=== PATIENT | male | born 1950 | race Caucasian/White ===

== ENCOUNTER 2018-07-15 23:33 | Inpatient (IN) | payer MEDICARE, OTHER ==
[2018-07-15 23:34] VITALS: BMI 24.4
[2018-07-15] MEDS ORDERED: Sodium Chloride 0.9% 1,000 ML IV ONE (23:51)
--- NOTE | 2018-07-15 23:51 | C.PDOC ---
History Of Present Illness patient presents with abdominal pain since yesterday. Has history of recent bowel resection. No f/c/n/v. Dull aching, pressure, diffuse.5/10 pain Time Seen by Provider: 07/15/18 23:50 Chief Complaint (Nursing): Abdominal Pain History Per: Patient History/Exam Limitations: no limitations Onset/Duration Of Symptoms: Days Current Symptoms Are (Timing): Worse Context: Other Severity: Moderate Pain Scale Rating Of: 5 Location Of Pain/Discomfort: Diffuse Radiation Of Pain To:: None Quality Of Discomfort: Dull, Cramping, Pressure Associated Symptoms: denies: Fever, Chills, Nausea Exacerbating Factors: None Alleviating Factors: None Last Bowel Movement: Yesterday Recent travel outside of the [place]: No Additional History Per: Patient, Family Past Medical History Reviewed: Historical Data, Nursing Documentation, Vital Signs Vital Signs: Last Vital Signs Temp 98.2 F 07/15/18 23:41 Pulse 86 07/15/18 23:41 Resp 20 07/15/18 23:41 BP 112/69 07/15/18 23:41 Pulse Ox 96 07/15/18 23:41 - Medical History PMH: HTN, Hypercholesterolemia Denies: Chronic Kidney Disease Surgical History: Coronary Stent (X3), Endoscopy - [facility] Procedures EXCISION OF ILEUM, PERCUTANEOUS ENDOSCOPIC APPROACH (02/19/18) EXCISION OF JEJUNUM, PERCUTANEOUS ENDOSCOPIC APPROACH (02/19/18) Family History: States: No Known Family Hx - Social History Hx Alcohol Use: No Hx Substance Use: No - Immunization History Hx Tetanus Toxoid Vaccination: No Hx Influenza Vaccination: Yes Hx Pneumococcal Vaccination: No Review Of Systems Constitutional: Negative for: Fever, Chills ENT: Negative for: Throat Pain Cardiovascular: Negative for: Chest Pain Respiratory: Negative for: Shortness of Breath Gastrointestinal: Positive for: Abdominal Pain. Negative for: Nausea Genitourinary: Negative for: Dysuria Musculoskeletal: Negative for: Back Pain Skin: Negative for: Rash Neurological: Negative for: Weakness Psych: Negative for: Anxiety Physical Exam - Physical Exam Appears: Non-toxic, Other (moderate discomfort) Skin: Warm, Dry Head: Normacephalic Eye(s): bilateral: Normal Inspection Oral Mucosa: Moist Neck: Supple Chest: Symmetrical Cardiovascular: Rhythm Regular Respiratory: No Rales, No Rhonchi, No Wheezing Gastrointestinal/Abdominal: Bowel Sounds (more tympanic on right side), Soft, Tenderness, Distention, No Guarding, No Rebound Back: Normal Inspection Extremity: Normal ROM Extremity: Bilateral: Atraumatic, Normal Color And Temperature, Normal ROM Pulses: Left Dorsalis Pedis: Normal, Right Dorsalis Pedis: Normal Neurological/Psych: Oriented x3 Gait: Steady ED Course And Treatment - Laboratory Results Result Diagrams: 07/16/18 00:16 07/16/18 00:16 ECG: Interpreted By Me, Viewed By Me O2 Sat by Pulse Oximetry: 96 Pulse Ox Interpretation: Normal - Radiology CXR: Interpreted by Me, Viewed By Me CXR Interpretation: No: Infiltrates, Fracture, Pnemothorax - Other Rad abd X-Ray: Interpreted by Me, Viewed By Me Interpretation: sbo, no free air, - CT Scan/US CT A/P Other Rad Studies (CT/US): Read By Radiologist, Radiology Report Reviewed CT/US Interpretation: CT SCAN OF THE ABDOMEN AND PELVIS WITH CONTRAST. CLINICAL HISTORY: Abdominal pain. TECHNIQUE: Multiple axial and coronal CT images were obtained through the abdomen and pelvis after administration of intravenous contrast material. COMMENTS: Small sliding hiatal hernia. Fluid-filled distended stomach. Moderate partial small bowel obstruction. Transition zone at the level of the surgical anastomosis in the right lower quadrant. No evidence of bowel perforation or pneumatosis intestinalis. The liver is of uniform attenuation without mass or defect. There is no intra or extrahepatic biliary ductal dilatation. The spleen is normal. The gallbladder is within normal limits. The pancreas is of normal contour and attenuation characteristics. There is no evidence of adrenal mass. Both kidneys demonstrate prompt and equal nephrograms. The kidneys are normal in size, shape and configuration. There is no evidence of renal or ureteral mass. No renal or ureteral calculi are identified. There is no hydroureter or hydronephrosis. No evidence for appendicitis. There is no bowel wall thickening. There is no evidence of abdominal ascites or lymphadenopathy. There is no evidence of intrinsic or extrinsic bladder mass. There is no pelvic ascites or lymphadenopathy. Images of the lung bases show no evidence of pleural or parenchymal mass. There are no pleural effusions. The bony structures are free of lytic or blastic lesions. Fat containing left inguinal hernia without incarceration. IMPRESSION: Small sliding hiatal hernia. Fluid-filled distended stomach. Moderate partial small bowel obstruction. Transition zone at the level of the surgical anastomosis in the right lower quadrant. No evidence of bowel perforation or pneumatosis intestinalis. Progress Note: spoke with the surgical garment assembly supervisor, will come and see the pt in the ed Disposition Discussed With Dr.: Kelby Romero Comment: accepted the pt on his service and took over the care at 2:30 AM Doctor Will See Patient In The: ED Counseled Patient/Family Regarding: Studies Performed, Diagnosis - Disposition Disposition: HOSPITALIZED Disposition Time: 23:51 Condition: FAIR Forms: [employer] (Nepali) - POA Present On Arrival: Poor Glycemic Control - Clinical Impression Clinical Impression: Abdominal pain, Vomiting, SBO (small bowel obstruction) Decision To Admit - Pt Status Changed To: Hospital Disposition Of: Inpatient - Admit Certification Admit to Inpatient:: After my assessment, the patient will require hospit alization for at least two midnights. This is because of the severity of symptoms shown, intensity of services needed, and/or the medical risk in this patient being treated as an outpatient. - InPatient: Physician Admission Certification:: After my assessment, the patient will require hospitalization for at least two midnights. This is because of the severity of symptoms shown, intensity of services needed, and/or the medical risk in this patient being treated as an outpatient. - . Bed Request Type: Regular Admitting Physician: Kelby Romero Patient Diagnosis: Abdominal pain, Vomiting, SBO (small bowel obstruction)
[2018-07-16 00:26] LABS: BASO % 0.4 % (0.0-2.0); EOS % 0.2 % (0.0-4.0); HEMOGLOBIN 13.1 g/dL (12.0-18.0); LYMPH # 0.9 K/uL (1.0-4.3); LYMPH % 12.2 % (20.0-40.0); MEAN CELL VOLUME 88.9 fL (80.0-94.0); MEAN CORPUSCULAR HEMOGLOBIN 29.4 pg (27.0-31.0); MEAN CORPUSCULAR HGB CONC 33.1 g/dL (33.0-37.0); MEAN PLATELET VOLUME 8.8 fL (7.2-11.7); MONO # 0.5 K/uL (0.0-0.8); MONO % 7.3 % (0.0-10.0); NEUT % 79.9 % (50.0-75.0); RBC 4.47 Mil/uL (4.40-5.90); RED CELL DISTRIBUTION WIDTH 14.8 % (11.5-14.5); WHITE BLOOD COUNT 7.5 K/uL (4.8-10.8)
[2018-07-16 00:39] LABS: INR 1.1; PROTHROMBIN TIME 11.9 SECONDS (9.7-12.2)
[2018-07-16 00:43] LABS: ALB/GLOB RATIO 1.5 (1.0-2.1); ALBUMIN 4.9 g/dL (3.5-5.0); ALT/SGPT 14 U/L (21-72); AST/SGOT 33 U/L (17-59); BLOOD UREA NITROGEN 18 mg/dL (9-20); CALCIUM 10.6 mg/dl (8.6-10.4); GFR NON-AFRICAN AMERICAN 50; LIPASE 103 U/L (23-300)
[2018-07-16] MEDS ORDERED: Iodixanol 320 MG/ML 100 ML BOTTLE IV ONE (01:12)
--- NOTE | 2018-07-16 03:09 | CP.PCM.HP ---
<Shi Reese - Last Filed: 07/16/18 03:12> History of Present Illness - History of Present Illness History of Present Illness: GENERAL SURGERY HISTORY AND PHYSICAL FOR DR. ROMERO 67 yo M with PMHx of HTN, hyperlipidemia, BPH, CAD, [place] s/p laparoscopic small bowel resection on 02/19/18 who presents to the ED with abdominal pain for a day and a half. The pain began on 07/14 after lunch. Pt's last BM was on 07/14. He vomited once that day. Took a percocet but did not relieve his pain. Yesterday, he vomited 4-5x with worsening pain. He called Dr. Romero and was told to come into the ED. Of note, on 02/19/18, he had a laparoscopic small bowel resection of ileum and jejunum for strictures with a meckels's diverticulectomy. PMHx: HTN, hyperlipidemia, BPH, CAD, [place] Surgeries: bilateral knee replacement, bilateral cataract, cardiac stent on plavix, laparoscopic small bowel resection on 02/19/18 Allergies: none Social history: denies etoh or tobacco abuse Present on Admission - Present on Admission Any Indicators Present on Admission: No Review of Systems - Review of Systems All systems: reviewed and no additional remarkable complaints except (as per HPI) Past Patient History - Past Medical History & Family History Past Medical History?: Yes - Past Social History Smoking Status: Never Smoked Alcohol: None - CARDIAC Hx Hypercholesterolemia: Yes Hx Hypertension: Yes - PULMONARY Hx Respiratory Disorders: No - NEUROLOGICAL Hx Neurological Disorder: No - HEENT Hx HEENT Problems: Yes Hx Cataracts: Yes (BILAT.) - RENAL Hx Chronic Kidney Disease: No - ENDOCRINE/METABOLIC Hx Endocrine Disorders: No - HEMATOLOGICAL/ONCOLOGICAL Hx Blood Disorders: No - INTEGUMENTARY Hx Dermatological Problems: No - MUSCULOSKELETAL/RHEUMATOLOGICAL Hx Musculoskeletal Disorders: Yes Hx Degenerative Joint Disease: Yes - GASTROINTESTINAL Hx Gastrointestinal Disorders: Yes Other/Comment: HX: SMALL BOWEL LESION - GENITOURINARY/GYNECOLOGICAL Hx Genitourinary Disorders: No - PSYCHIATRIC Hx Substance Use: No - SURGICAL HISTORY Hx Coronary Stent: Yes (X3) - ANESTHESIA Hx Anesthesia: Yes Hx Anesthesia Reactions: No Hx Malignant Hyperthermia: No Meds Allergies/Adverse Reactions: Allergies Allergy/AdvReac Type Severity Reaction Status Date / Time No Known Allergies Allergy Verified 07/15/18 23:48 Physical Exam - Constitutional Appears: Well, Non-toxic, No Acute Distress - Head Exam Head Exam: ATRAUMATIC, NORMAL INSPECTION - Eye Exam Eye Exam: EOMI, Normal appearance - Respiratory Exam Respiratory Exam: NORMAL BREATHING PATTERN. absent: Respiratory Distress - Cardiovascular Exam Cardiovascular Exam: +S1, +S2 - GI/Abdominal Exam GI & Abdominal Exam: Soft, Tenderness (mild lower abdominal tenderness bilaterally). absent: Distended, Firm, Guarding, Rebound, Rigid Additional comments: well healed lower midline scar - Extremities Exam Extremities exam: Positive for: normal inspection. Negative for: calf tenderness - Neurological Exam Neurological exam: Alert, CN II-XII Intact, Oriented x3 - Psychiatric Exam Psychiatric exam: Normal Affect, Normal Mood - Skin Skin Exam: Dry, Normal Color, Warm Results - Vital Signs Recent Vital Signs: Last Vital Signs Temp 98.2 F 07/15/18 23:41 Pulse 86 07/15/18 23:41 Resp 20 07/15/18 23:41 BP 112/69 07/15/18 23:41 Pulse Ox 96 07/16/18 02:34 - Labs Result Diagrams: 07/16/18 00:16 07/16/18 00:16 Labs: Laboratory Results - last 24 hr 07/16/18 07/16/18 07/16/18 00:16 00:16 00:16 WBC 7.5 RBC 4.47 Hgb 13.1 Hct 39.7 MCV 88.9 MCH 29.4 MCHC 33.1 RDW 14.8 H Plt Count 188 MPV 8.8 Neut % (Auto) 79.9 H Lymph % (Auto) 12.2 L [place] % (Auto) 7.3 Eos % (Auto) 0.2 Baso % (Auto) 0.4 Neut # (Auto) 6.0 Lymph # (Auto) 0.9 L [place] # (Auto) 0.5 Eos # (Auto) 0.0 Baso # (Auto) 0.0 PT 11.9 INR 1.1 Sodium 136 Potassium 4.9 Chloride 96 L Carbon Dioxide 29 Anion Gap 16 BUN 18 Creatinine 1.4 Est GFR ( Amer) > 60 Est GFR (Non-Af Amer) 50 Random Glucose 120 H Calcium 10.6 H Total Bilirubin 0.8 AST 33 ALT 14 L D Alkaline Phosphatase 68 Total Protein 8.2 Albumin 4.9 Globulin 3.2 Albumin/Globulin Ratio 1.5 Lipase 103 Blood Type Antibody Screen 07/16/18 00:27 WBC RBC Hgb Hct MCV MCH MCHC RDW Plt Count MPV Neut % (Auto) Lymph % (Auto) [place] % (Auto) Eos % (Auto) Baso % (Auto) Neut # (Auto) Lymph # (Auto) [place] # (Auto) Eos # (Auto) Baso # (Auto) PT INR Sodium Potassium Chloride Carbon Dioxide Anion Gap BUN Creatinine Est GFR ( Amer) Est GFR (Non-Af Amer) Random Glucose Calcium Total Bilirubin AST ALT Alkaline Phosphatase Total Protein Albumin Globulin Albumin/Globulin Ratio Lipase Blood Type AB POSITIVE Antibody Screen Negative Assessment & Plan - Assessment and Plan (Free Text) Assessment: 67 yo M with PMHx of HTN, hyperlipidemia, BPH, CAD, [place] s/p laparoscopic small bowel resection on 02/19/18 who is found to have SBO - CT Abd/Pelvis: Small sliding hiatal hernia. Fluid-filled distended stomach. Moderate partial small bowel obstruction. Transition zone at the level of the surgical anastomosis in the right lower quadrant. Fat containing left inguinal hernia without incarceration. - NPO, bowel rest - IV fluids - Hold Plavix and PO meds - Start Zosyn - NG tube inserted with 250cc dark brown output - Continue NG tube to low continuous suction - Serial abdominal exams - Consult to Dr. Eve Babin - Discussed plan with Dr. Heather Reese PGY-4 <Kelby Romero - Last Filed: 07/20/18 20:47> Results - Vital Signs Recent Vital Signs: Last Vital Signs Temp 97.8 F 07/18/18 08:00 Pulse 74 07/18/18 08:00 Resp 20 07/18/18 08:00 BP 133/71 07/18/18 08:00 Pulse Ox 97 07/18/18 08:00 - Labs Result Diagrams: 07/16/18 00:16 07/18/18 08:23 Attending/Attestation - Attestation I have personally seen and examined this patient.: Yes I have fully participated in the care of the patient.: Yes I have reviewed all pertinent clinical information: Yes Notes (Text): Pt was seen and examined at bedside Agree with above note and assessment Pt with abdominal pain and nausea and vomiting Abdomen : Soft, ,NT,distended Labs and radiology reviewed Ass: PSBO, IBD Plan: NG tube insertion NPO, IVF GI consult Medicine consult C/w current mx Plan d.w pt in detail Risk and benefit explained in detail.
[2018-07-16] MEDS ORDERED: Piperacill/Tazo 3.375gm in Dex 3.375 GM/50 ML BAG IVPB SCH (03:15)
[2018-07-16] MEDS ORDERED: Lactated Ringer's 1,000 ML IV SCH (03:30)
[2018-07-16] MEDS: Piperacill/Tazo 3.375gm in Dex 3.375 GM/50 ML BAG IVPB SCH ×4 (04:33→21:47)
--- NOTE | 2018-07-16 09:36 | RAD ---
Date of service: 07/16/2018 PROCEDURE: Radiographs of the chest and abdomen (obstructive series) HISTORY: abd pain COMPARISON: No prior. TECHNIQUE: AP radiograph of the chest, with upright and supine radiographs of the abdomen. FINDINGS: CHEST: Lungs: Clear. Cardiovascular: Normal size heart. No pulmonary vascular congestion. No aortic atherosclerotic calcification present Pleura: No pleural fluid. No pneumothorax. Other findings: None. ABDOMEN AND PELVIS: Air-fluid levels are identified within what appear to be small and possibly large-bowel loops in the central abdomen/left lower quadrant. Retained fecal material is moderate the right hemicolon and limited at the rectosigmoid junction. Pattern is nonspecific but could reflect an early small-bowel obstruction. Follow-up radiography or CT advised for added characterization. Air-fluid levels seen the stomach. No free intra peritoneal gas collection identified or abnormal intra-abdominal calcifications. Postop changes seen in the right hemipelvis soft tissues. Advanced degenerative joint disease seen the bilateral hip joints, moderate the bilateral sacroiliac joints. Dextroscoliotic lumbar spinal deformity identified. IMPRESSION: Findings suspicious but not definitive for potential intermittent or partial small bowel obstruction. Postop changes seen in the right hemipelvis soft tissues inferiorly. No free intra peritoneal gas collection. Follow-up radiography or CT advised.
[2018-07-16] MEDS ORDERED: Dextrose 5%/0.9% NS 1,000 ML IV SCH (10:00)
--- NOTE | 2018-07-16 10:11 | CT ---
Date of service: 07/16/2018 PROCEDURE: CT Abdomen and Pelvis with contrast HISTORY: sbo COMPARISON: Abdomen obstructive series radiographs 07/16/2018. TECHNIQUE: Following the intravenous administration of iodinated contrast material, a CT examination of the abdomen and pelvis was performed from the domes of the diaphragms to the symphysis pubis with reformatted datasets provided in axial, sagittal and coronal planes. Oral contrast was not administered as per referring physician request. Contrast dose: Visipaque 320, 100 cc Radiation dose: Total exam DLP = 423.36 mGy-cm. This CT exam was performed using one or more of the following dose reduction techniques: Automated exposure control, adjustment of the mA and/or kV according to patient size, and/or use of iterative reconstruction technique. FINDINGS: LOWER THORAX: Small hiatal hernia identified. LIVER: Hepatic steatosis is manifest by diminished attenuation throughout the liver without discrete mass or intrahepatic biliary dilatation evident. GALLBLADDER AND BILE DUCTS: Unremarkable. PANCREAS: Unremarkable. No gross lesion or ductal dilatation. SPLEEN: Unremarkable. ADRENALS: Unremarkable. No mass. KIDNEYS AND URETERS: Unremarkable. No hydronephrosis. No solid mass. VASCULATURE: Nonaneurysmal abdominal aortic calcific atherosclerotic changes are identified. BOWEL: Stomach is distended with retained fluid with no mural thickening or nodularity associated throughout the vast majority of the fundus or cardiac segment. The antrum is collapsed partially and poorly evaluated. Is also no oral contrast limiting evaluation of the gastrointestinal tract. There is prominent dilatation of proximal and mid small bowel with chain sutures identified at proximal and distal small bowel segments. At the right lower quadrant abdomen, there is a collapsed or strictured segment of distal small bowel at the right lower quadrant/right hemipelvis with associated suture material and fecalization of slightly more proximal small bowel. Limited retained fecal material seen in the colon which is largely collapsed. The pattern is most compatible with distal small-bowel obstruction and further clinical correlation is advised. APPENDIX: Normal, retrocecal appendix. PERITONEUM: Unremarkable. No free fluid. No free air. LYMPH NODES: Unremarkable. No enlarged lymph nodes. BLADDER: Unremarkable. REPRODUCTIVE: Mild prostate gland enlargement. BONES: Severe anterior wedge compression of T11 with scoliotic thoracolumbar spinal deformity evident. Minimal grade 1 spondylolisthesis L2-3 on the basis of facet arthropathy. No spondylolysis. OTHER FINDINGS: None. IMPRESSION: Distal small-bowel obstruction with small bowel transition from dilated to collapsed loops at the right lower quadrant/right hemipelvis for postoperative change sutures are identified. Fecalization of the lumen of the small bowel seen proximal to this collapsed segment. Please see discussion above. Other lesser findings as discussed above. Concordant preliminary report from Jose F, 07/16/2018, 2:25 a.m..
--- NOTE | 2018-07-16 10:16 | RAD ---
Date of service: 07/16/2018 HISTORY: chest pain COMPARISON: 02/11/2018 FINDINGS: The nasogastric tube is coiled in the stomach. LUNGS: The lungs are well inflated. There is bibasilar PLEURA: No pleural effusions or pneumothorax. CARDIOVASCULAR: The heart is normal in size. No aortic atherosclerotic calcifications present. OSSEOUS STRUCTURES: Within normal limits for the patient's age. VISUALIZED UPPER ABDOMEN: Normal. OTHER FINDINGS: None. IMPRESSION: Nasogastric tube is coiled in the stomach. Bibasilar atelectasis.
[2018-07-16] MEDS: Potassium Chloride 40 MEQ in Dextrose 5%/0.9% NS 1,000 ML IV SCH (13:54)
--- NOTE | 2018-07-16 14:44 | CP.PCM.CON ---
<Tito Kapoor - Last Filed: 07/16/18 15:31> History of Present Illness - History of Present Illness History of Present Illness: PGY-4 GI Fellow Consult Note Pt is a 67 yo [place]olan Male with HTN, HLD, CAD (stent 2017), BPH and history of recurrent SBO (s/p SB resection on 02/19/18 after capsule endoscopy was stuck) presenting with abdominal pain and N/V. He states that on 07/14/18 shortly after lunch he had periumbilical discomfort associated with multiple episodes of bilious emesis. States he tried to vomiting more to the see if it would help with pain as well as took some percocet without relief of symptoms. States that last BM was in the AM of 07/14 which he states was formed brown BM. He denied any weight loss, dysphagia, melena, hematochezia, joint pain, rashes, eye pain/mcmullen e in vision nor oral ulcers. Of note, pt recently had repeat video capsule endoscopy in Feb 2018 after recent EGD+CSPY+VCE were negative at [facility](?). That capsule became stuck; therefore, he underwent laparoscopic surgery for capsule retrieval with small bowel resection of ileum and jejunum for strictures with a meckels's diverticulectomy. Path of resected bowel showed focal muscularis propria hyperplasia. 12 point ROS negative other than stated above MHx: See above SurgHx: Laparoscopic small bowel resection of ileum and jejunum for strictures with a meckels's diverticulectomy (02/19/18), bilateral knee replacement, bilateral cataract, cardiac stent on clopidogrel Meds: Reviewed in chart FamHx: States grandson has Crohn's disease (on adalimumab), otherwise denied anyone with GI problems/CRC SocHx: Denied x3 All: NKDA Past Patient History - Past Medical History & Family History Past Medical History?: Yes - Past Social History Smoking Status: Never Smoked - CARDIAC Hx Hypercholesterolemia: Yes Hx Hypertension: Yes - PULMONARY Hx Respiratory Disorders: No - NEUROLOGICAL Hx Neurological Disorder: No - HEENT Hx HEENT Problems: Yes Hx Cataracts: Yes (BILAT.) - RENAL Hx Chronic Kidney Disease: No - ENDOCRINE/METABOLIC Hx Endocrine Disorders: No - HEMATOLOGICAL/ONCOLOGICAL Hx Blood Disorders: No - INTEGUMENTARY Hx Dermatological Problems: No - MUSCULOSKELETAL/RHEUMATOLOGICAL Hx Musculoskeletal Disorders: Yes Hx Degenerative Joint Disease: Yes Hx Falls: No - GASTROINTESTINAL Hx Gastrointestinal Disorders: Yes Other/Comment: HX: SMALL BOWEL LESION - GENITOURINARY/GYNECOLOGICAL Hx Genitourinary Disorders: No - PSYCHIATRIC Hx Psychophysiologic Disorder: No Hx Substance Use: No - SURGICAL HISTORY Hx Coronary Stent: Yes (X3) - ANESTHESIA Hx Anesthesia: Yes Hx Anesthesia Reactions: No Hx Malignant Hyperthermia: No Meds Allergies/Adverse Reactions: Allergies Allergy/AdvReac Type Severity Reaction Status Date / Time No Known Allergies Allergy Verified 07/15/18 23:48 - Medications Medications: Current Medications Piperacillin Sod/Tazobactam Sod (Zosyn 3.375 Gm Iv Premix) 3.375 gm in 50 mls @ 100 mls/hr IVPB Q6H [facility] Last Admin: 07/16/18 11:31 Dose: 100 mls/hr Potassium Chloride 40 meq/ (Dextrose/Sodium Chloride) 1,020 mls @ 100 mls/hr IV .[id number] [facility] Last Admin: 07/16/18 13:54 Dose: 100 mls/hr Morphine Sulfate (Morphine) 2 mg IVP Q4 PRN PRN Reason: Pain, moderate (4-7) Last Admin: 07/16/18 04:15 Dose: 2 mg Morphine Sulfate (Morphine) 4 mg IVP Q4 PRN PRN Reason: Pain, severe (8-10) Ondansetron HCl (Zofran Inj) 4 mg IVP Q4 PRN PRN Reason: Nausea/Vomiting Pantoprazole Sodium (Protonix Inj) 40 mg IVP DAILY [facility] Last Admin: 07/16/18 10:27 Dose: 40 mg Sodium Phosphate (Fleet Enema) 135 ml MN Q8H [facility] Stop: 07/18/18 02:01 Last Admin: 07/16/18 10:34 Dose: 135 ml Physical Exam - Constitutional Appears: Well, No Acute Distress - Head Exam Head Exam: ATRAUMATIC, NORMAL INSPECTION - Eye Exam Eye Exam: EOMI. absent: Scleral icterus - ENT Exam ENT Exam: Mucous Membranes Dry. absent: Mucous Membranes Moist Additional comments: NG tube in place, clamped - Respiratory Exam Respiratory Exam: Clear to Auscultation Bilateral, NORMAL BREATHING PATTERN. absent: Accessory Muscle Use - Cardiovascular Exam Cardiovascular Exam: REGULAR RHYTHM, RRR - GI/Abdominal Exam GI & Abdominal Exam: Distended (mildly), Normal Bowel Sounds, Soft, Tenderness (ttp jsut superios to umbilicus). absent: Bruit, Diminished Bowel Sounds, Firm, Guarding, Hernia, Mass, Organomegaly, Pulsatile Mass, Rebound, Rigid - Rectal Exam Rectal Exam: Deferred - Extremities Exam Extremities exam: Positive for: normal inspection. Negative for: pedal edema - Neurological Exam Neurological exam: Alert, CN II-XII Intact - Psychiatric Exam Psychiatric exam: Normal Affect, Normal Mood - Skin Skin Exam: Dry, Warm Results - Vital Signs Recent Vital Signs: Last Vital Signs Temp 98.0 F 07/16/18 09:09 Pulse 80 07/16/18 09:09 Resp 20 07/16/18 09:09 BP 125/74 07/16/18 09:09 Pulse Ox 95 07/16/18 09:09 - Labs Result Diagrams: 07/16/18 00:16 07/16/18 00:16 Labs: Laboratory Results - last 24 hr 07/16/18 07/16/18 07/16/18 00:16 00:16 00:16 WBC 7.5 RBC 4.47 Hgb 13.1 Hct 39.7 MCV 88.9 MCH 29.4 MCHC 33.1 RDW 14.8 H Plt Count 188 MPV 8.8 Neut % (Auto) 79.9 H Lymph % (Auto) 12.2 L Wetzel % (Auto) 7.3 Eos % (Auto) 0.2 Baso % (Auto) 0.4 Neut # (Auto) 6.0 Lymph # (Auto) 0.9 L Wetzel # (Auto) 0.5 Eos # (Auto) 0.0 Baso # (Auto) 0.0 PT 11.9 INR 1.1 Sodium 136 Potassium 4.9 Chloride 96 L Carbon Dioxide 29 Anion Gap 16 BUN 18 Creatinine 1.4 Est GFR ( Amer) > 60 Est GFR (Non-Af Amer) 50 Random Glucose 120 H Calcium 10.6 H Total Bilirubin 0.8 AST 33 ALT 14 L D Alkaline Phosphatase 68 Total Creatine Kinase CK-MB (Mass) Troponin I Total Protein 8.2 Albumin 4.9 Globulin 3.2 Albumin/Globulin Ratio 1.5 Lipase 103 Blood Type Antibody Screen 07/16/18 07/16/18 00:27 08:06 WBC RBC Hgb Hct MCV MCH MCHC RDW Plt Count MPV Neut % (Auto) Lymph % (Auto) Wetzel % (Auto) Eos % (Auto) Baso % (Auto) Neut # (Auto) Lymph # (Auto) Wetzel # (Auto) Eos # (Auto) Baso # (Auto) PT INR Sodium Potassium Chloride Carbon Dioxide Anion Gap BUN Creatinine Est GFR ( Amer) Est GFR (Non-Af Amer) Random Glucose Calcium Total Bilirubin AST ALT Alkaline Phosphatase Total Creatine Kinase 44 L CK-MB (Mass) 2.10 Troponin I < 0.0120 Total Protein Albumin Globulin Albumin/Globulin Ratio Lipase Blood Type AB POSITIVE Antibody Screen Negative Assessment & Plan - Assessment and Plan (Free Text) Assessment: 67 yo [place] Male with HTN, HLD, BPH, CAD s/p stenting (2017, on clopidogrel), h/o recurrent SBO presening with abd pain, nausea/vomiting. # Recurrent SBO: Signs/symptoms with CT imagin of dialted loops of small bowel with likely transition point in RLQ. Symptoms improved post-NG and supportive care. Unclear etiology for recurrence. Given muscularis propria hyperplasia on resected small bowel, there is some concern about possible underlying Crohn's disease. But, IBD panel returned negative. Quantiferon negative on outpatient labs. CRP not elevated as well as outpatient. # CAD: s/p stent, 2017. On clopidogrel. Plan: - NG and diet per Surgery - IVF - Supportive care - Will cont to monitor Pt seen and examined with Dr. Og; please see attestation for further recs/changes. <Lance Og - Last Filed: 07/16/18 16:53> Meds - Medications Medications: Current Medications Piperacillin Sod/Tazobactam Sod (Zosyn 3.375 Gm Iv Premix) 3.375 gm in 50 mls @ 100 mls/hr IVPB Q6H [facility] Last Admin: 07/16/18 16:26 Dose: 100 mls/hr Potassium Chloride 40 meq/ (Dextrose/Sodium Chloride) 1,020 mls @ 100 mls/hr IV .[id number] [facility] Last Admin: 07/16/18 13:54 Dose: 100 mls/hr Morphine Sulfate (Morphine) 2 mg IVP Q4 PRN PRN Reason: Pain, moderate (4-7) Last Admin: 07/16/18 04:15 Dose: 2 mg Morphine Sulfate (Morphine) 4 mg IVP Q4 PRN PRN Reason: Pain, severe (8-10) Ondansetron HCl (Zofran Inj) 4 mg IVP Q4 PRN PRN Reason: Nausea/Vomiting Pantoprazole Sodium (Protonix Inj) 40 mg IVP DAILY [facility] Last Admin: 07/16/18 10:27 Dose: 40 mg Sodium Phosphate (Fleet Enema) 135 ml MN Q8H [facility] Stop: 07/18/18 02:01 Last Admin: 07/16/18 10:34 Dose: 135 ml Results - Vital Signs Recent Vital Signs: Last Vital Signs Temp 98.0 F 07/16/18 09:09 Pulse 80 07/16/18 09:09 Resp 20 07/16/18 09:09 BP 125/74 07/16/18 09:09 Pulse Ox 95 07/16/18 09:09 - Labs Result Diagrams: 07/16/18 00:16 07/16/18 00:16 Labs: Laboratory Results - last 24 hr 07/16/18 07/16/18 07/16/18 00:16 00:16 00:16 WBC 7.5 RBC 4.47 Hgb 13.1 Hct 39.7 MCV 88.9 MCH 29.4 MCHC 33.1 RDW 14.8 H Plt Count 188 MPV 8.8 Neut % (Auto) 79.9 H Lymph % (Auto) 12.2 L Wetzel % (Auto) 7.3 Eos % (Auto) 0.2 Baso % (Auto) 0.4 Neut # (Auto) 6.0 Lymph # (Auto) 0.9 L Wetzel # (Auto) 0.5 Eos # (Auto) 0.0 Baso # (Auto) 0.0 PT 11.9 INR 1.1 Sodium 136 Potassium 4.9 Chloride 96 L Carbon Dioxide 29 Anion Gap 16 BUN 18 Creatinine 1.4 Est GFR ( Amer) > 60 Est GFR (Non-Af Amer) 50 Random Glucose 120 H Calcium 10.6 H Total Bilirubin 0.8 AST 33 ALT 14 L D Alkaline Phosphatase 68 Total Creatine Kinase CK-MB (Mass) Troponin I Total Protein 8.2 Albumin 4.9 Globulin 3.2 Albumin/Globulin Ratio 1.5 Lipase 103 Hepatitis A IgM Ab Hep Bs Antigen Hep B Core IgM Ab Hepatitis C Antibody Blood Type Antibody Screen 07/16/18 07/16/18 07/16/18 00:27 08:06 14:06 WBC RBC Hgb Hct MCV MCH MCHC RDW Plt Count MPV Neut % (Auto) Lymph % (Auto) Wetzel % (Auto) Eos % (Auto) Baso % (Auto) Neut # (Auto) Lymph # (Auto) Wetzel # (Auto) Eos # (Auto) Baso # (Auto) PT INR Sodium Potassium Chloride Carbon Dioxide Anion Gap BUN Creatinine Est GFR ( Amer) Est GFR (Non-Af Amer) Random Glucose Calcium Total Bilirubin AST ALT Alkaline Phosphatase Total Creatine Kinase 44 L CK-MB (Mass) 2.10 Troponin I < 0.0120 Total Protein Albumin Globulin Albumin/Globulin Ratio Lipase Hepatitis A IgM Ab Negative Hep Bs Antigen Negative Hep B Core IgM Ab Negative Hepatitis C Antibody Negative Blood Type AB POSITIVE Antibody Screen Negative Attending/Attestation - Attestation I have personally seen and examined this patient.: Yes I have fully participated in the care of the patient.: Yes I have reviewed all pertinent clinical information: Yes Notes (Text): 07/16/18 16:47 I have seen and examined patient with GI fellow. Agree with above documentation with the following additions. In brief, this is a 67 year old male with history of HTN, CAD s/p stent, hyperlipidemia, recurrent SBO s/p partial small bowel resection in February 2018 who presents to hospital with complaint of sudden onset abdominal pain and vomiting which started 2 days ago. Prior to this he w as in usual state of health. He reports symptoms started suddenly after eating lunch and describes multiple episodes of bilious emesis along with epigastric abdominal pain, 5/10 intensity radiating to umbilicus. Since arrival to hospital, he underwent NGT decompression for treatment of SBO and is feeling much better. He had a bowel movement this morning and has not had any recurrent episodes of vomiting. HTN CAD s/p stent Hyperlipidemia Recurrent SBO (etiology unclear) s/p partial small bowel resection Abdominal pain, vomiting - SBO CT imaging reviewed by me showing distal small bowel obstruction with proximal small bowel dilation - NPO - Continue with antibiotic therapy - Monitor NGT output - Continue with supportive care, IVF hydration therapy - Follow up surgical recommendations - Outpatient IBD differentiation panel and CRP, fecal calprotectin, quantiferon gold all negative. Patient may benefit from low dose steroid therapy given histologic findings of muscularis propria hyperplasia on surgical specimen, though will consider starting this as outpatient following resolution of acute symptoms. - Will continue to monitor patient clinical course
[2018-07-16 16:03] LABS: HEPATITIS B SURFACE AG Negative (NEGATIVE)
[2018-07-16 16:09] LABS: HEPATITIS A IGM NEGATIVE (NEGATIVE); HEPATITIS B CORE AB NEGATIVE (NEGATIVE)
[2018-07-16 16:21] LABS: HEPATITIS C ANTIBODY NEGATIVE (NEGATIVE)
--- NOTE | 2018-07-16 19:01 | CP.PCM.CON ---
Past Patient History - Past Medical History & Family History Past Medical History?: Yes - Past Social History Smoking Status: Never Smoked - CARDIAC Hx Hypercholesterolemia: Yes Hx Hypertension: Yes - PULMONARY Hx Respiratory Disorders: No - NEUROLOGICAL Hx Neurological Disorder: No - HEENT Hx HEENT Problems: Yes Hx Cataracts: Yes (BILAT.) - RENAL Hx Chronic Kidney Disease: No - ENDOCRINE/METABOLIC Hx Endocrine Disorders: No - HEMATOLOGICAL/ONCOLOGICAL Hx Blood Disorders: No - INTEGUMENTARY Hx Dermatological Problems: No - MUSCULOSKELETAL/RHEUMATOLOGICAL Hx Musculoskeletal Disorders: Yes Hx Degenerative Joint Disease: Yes Hx Falls: No - GASTROINTESTINAL Hx Gastrointestinal Disorders: Yes Other/Comment: HX: SMALL BOWEL LESION - GENITOURINARY/GYNECOLOGICAL Hx Genitourinary Disorders: No - PSYCHIATRIC Hx Psychophysiologic Disorder: No Hx Substance Use: No - SURGICAL HISTORY Hx Coronary Stent: Yes (X3) - ANESTHESIA Hx Anesthesia: Yes Hx Anesthesia Reactions: No Hx Malignant Hyperthermia: No Meds Allergies/Adverse Reactions: Allergies Allergy/AdvReac Type Severity Reaction Status Date / Time No Known Allergies Allergy Verified 07/15/18 23:48 - Medications Medications: Current Medications Piperacillin Sod/Tazobactam Sod (Zosyn 3.375 Gm Iv Premix) 3.375 gm in 50 mls @ 100 mls/hr IVPB Q6H [facility] Last Admin: 07/16/18 16:26 Dose: 100 mls/hr Potassium Chloride 40 meq/ (Dextrose/Sodium Chloride) 1,020 mls @ 100 mls/hr IV .[id number] [facility] Last Admin: 07/16/18 13:54 Dose: 100 mls/hr Morphine Sulfate (Morphine) 2 mg IVP Q4 PRN PRN Reason: Pain, moderate (4-7) Last Admin: 07/16/18 04:15 Dose: 2 mg Morphine Sulfate (Morphine) 4 mg IVP Q4 PRN PRN Reason: Pain, severe (8-10) Ondansetron HCl (Zofran Inj) 4 mg IVP Q4 PRN PRN Reason: Nausea/Vomiting Pantoprazole Sodium (Protonix Inj) 40 mg IVP DAILY [facility] Last Admin: 07/16/18 10:27 Dose: 40 mg Sodium Phosphate (Fleet Enema) 135 ml SD Q8H [facility] Stop: 07/18/18 02:01 Last Admin: 07/16/18 18:27 Dose: 135 ml Physical Exam - Constitutional Appears: Well - Head Exam Head Exam: ATRAUMATIC, NORMAL INSPECTION, NORMOCEPHALIC - Eye Exam Eye Exam: EOMI, Normal appearance, PERRL Pupil Exam: NORMAL ACCOMODATION, PERRL - ENT Exam ENT Exam: Mucous Membranes Moist, Normal Exam - Neck Exam Neck exam: Positive for: Normal Inspection - Respiratory Exam Respiratory Exam: Decreased Breath Sounds - Cardiovascular Exam Cardiovascular Exam: REGULAR RHYTHM, +S1, +S2 - GI/Abdominal Exam GI & Abdominal Exam: Diminished Bowel Sounds, Soft - Rectal Exam Rectal Exam: Deferred Results - Vital Signs Recent Vital Signs: Last Vital Signs Temp 98.6 F 07/16/18 15:45 Pulse 69 07/16/18 15:45 Resp 20 07/16/18 15:45 BP 124/71 07/16/18 15:45 Pulse Ox 96 07/16/18 15:45 - Labs Result Diagrams: 07/16/18 00:16 07/16/18 00:16 Labs: Laboratory Results - last 24 hr 07/16/18 07/16/18 07/16/18 00:16 00:16 00:16 WBC 7.5 RBC 4.47 Hgb 13.1 Hct 39.7 MCV 88.9 MCH 29.4 MCHC 33.1 RDW 14.8 H Plt Count 188 MPV 8.8 Neut % (Auto) 79.9 H Lymph % (Auto) 12.2 L Roberts % (Auto) 7.3 Eos % (Auto) 0.2 Baso % (Auto) 0.4 Neut # (Auto) 6.0 Lymph # (Auto) 0.9 L Roberts # (Auto) 0.5 Eos # (Auto) 0.0 Baso # (Auto) 0.0 PT 11.9 INR 1.1 Sodium 136 Potassium 4.9 Chloride 96 L Carbon Dioxide 29 Anion Gap 16 BUN 18 Creatinine 1.4 Est GFR ( Amer) > 60 Est GFR (Non-Af Amer) 50 Random Glucose 120 H Calcium 10.6 H Total Bilirubin 0.8 AST 33 ALT 14 L D Alkaline Phosphatase 68 Total Creatine Kinase CK-MB (Mass) Troponin I Total Protein 8.2 Albumin 4.9 Globulin 3.2 Albumin/Globulin Ratio 1.5 Lipase 103 Hepatitis A IgM Ab Hep Bs Antigen Hep B Core IgM Ab Hepatitis C Antibody Blood Type Antibody Screen 02/11/2607/16/18 07/16/18 00:27 08:06 14:06 WBC RBC Hgb Hct MCV MCH MCHC RDW Plt Count MPV Neut % (Auto) Lymph % (Auto) Roberts % (Auto) Eos % (Auto) Baso % (Auto) Neut # (Auto) Lymph # (Auto) Roberts # (Auto) Eos # (Auto) Baso # (Auto) PT INR Sodium Potassium Chloride Carbon Dioxide Anion Gap BUN Creatinine Est GFR ( Amer) Est GFR (Non-Af Amer) Random Glucose Calcium Total Bilirubin AST ALT Alkaline Phosphatase Total Creatine Kinase 44 L CK-MB (Mass) 2.10 Troponin I < 0.0120 Total Protein Albumin Globulin Albumin/Globulin Ratio Lipase Hepatitis A IgM Ab Negative Hep Bs Antigen Negative Hep B Core IgM Ab Negative Hepatitis C Antibody Negative Blood Type AB POSITIVE Antibody Screen Negative
[2018-07-17] MEDS: Potassium Chloride 40 MEQ in Dextrose 5%/0.9% NS 1,000 ML IV SCH ×2 (04:00→13:25)
[2018-07-17] MEDS: Piperacill/Tazo 3.375gm in Dex 3.375 GM/50 ML BAG IVPB SCH ×4 (04:00→21:54)
--- NOTE | 2018-07-17 06:49 | CP.PCM.PN ---
<Mary Anne Kapoorcheryl - Last Filed: 07/17/18 07:55> Subjective - Date & Time of Evaluation Date of Evaluation: 07/17/18 Time of Evaluation: 07:05 - Subjective Subjective: PGY-4 GI Fellow Prog Note Pt lying in bed, using phone when seen this AM. States he continues to feel improved with less abd distension/pain and moves bowels. Denied N/V. 5 point ROS negative other than stated above Objective - Vital Signs/Intake and Output Vital Signs (last 24 hours): Temp Pulse Resp BP Pulse Ox 97.7 F 68 20 128/77 95 07/17/18 00:00 07/17/18 00:00 07/17/18 00:00 07/17/18 00:00 07/17/18 00:00 Intake and Output: 07/16/18 07/17/18 18:59 06:59 Intake Total 450 Output Total 200 Balance 250 - Medications Medications: Current Medications Piperacillin Sod/Tazobactam Sod (Zosyn 3.375 Gm Iv Premix) 3.375 gm in 50 mls @ 100 mls/hr IVPB Q6H [facility] Last Admin: 07/17/18 04:00 Dose: 100 mls/hr Potassium Chloride 40 meq/ (Dextrose/Sodium Chloride) 1,020 mls @ 100 mls/hr IV .[id number] [facility] Last Admin: 07/17/18 04:00 Dose: 100 mls/hr Morphine Sulfate (Morphine) 2 mg IVP Q4 PRN PRN Reason: Pain, moderate (4-7) Last Admin: 07/16/18 04:15 Dose: 2 mg Morphine Sulfate (Morphine) 4 mg IVP Q4 PRN PRN Reason: Pain, severe (8-10) Ondansetron HCl (Zofran Inj) 4 mg IVP Q4 PRN PRN Reason: Nausea/Vomiting Pantoprazole Sodium (Protonix Inj) 40 mg IVP DAILY [facility] Last Admin: 07/16/18 10:27 Dose: 40 mg Sodium Phosphate (Fleet Enema) 135 ml SC Q8H [facility] Stop: 07/18/18 02:01 Last Admin: 07/17/18 04:02 Dose: 135 ml - Labs Labs: 07/16/18 00:16 07/16/18 00:16 PT 11.9 SECONDS (9.7-12.2) 07/16/18 00:16 INR 1.1 07/16/18 00:16 - Constitutional Appears: Well, No Acute Distress - Head Exam Head Exam: ATRAUMATIC, NORMAL INSPECTION - Eye Exam Eye Exam: EOMI. absent: Scleral icterus - ENT Exam ENT Exam: Mucous Membranes Dry. absent: Mucous Membranes Moist Additional comments: NG in place - Respiratory Exam Respiratory Exam: NORMAL BREATHING PATTERN. absent: Accessory Muscle Use, Respiratory Distress - GI/Abdominal Exam GI & Abdominal Exam: Soft, Tenderness (mildly ttp RLQ w/o guarding), Mass, Normal Bowel Sounds. absent: Bruit, Distended, Firm, Guarding, Rigid, Or ganomegaly, Pulsatile Mass Assessment and Plan - Assessment and Plan (Free Text) Assessment: 67 yo French Male with HTN, HLD, BPH, CAD s/p stenting (2017, on clopidogrel), h/o recurrent SBO presening with abd pain, nausea/vomiting. # Recurrent SBO: Signs/symptoms with CT imagin of dialted loops of small bowel with likely transition point in RLQ. Symptoms improved post-NG and supportive care. Unclear etiology for recurrence. Given muscularis propria hyperplasia on resected small bowel, there is some concern about possible underlying Crohn's disease/inflammatory component. But, IBD panel returned negative. Quantiferon, CRP and calprotectin negative on outpatient labs. # CAD: s/p stent, 2017. On clopidogrel. Plan: - NG and diet per Surgery - IVF - Supportive care - Will consider further rx 5-ASA, budesonide, etc. as outpatient Pt seen and examined with Dr. Og; please see attestation for further recs/changes. <Lance Og - Last Filed: 07/17/18 08:28> Objective - Vital Signs/Intake and Output Vital Signs (last 24 hours): Temp Pulse Resp BP Pulse Ox 97.7 F 68 20 128/77 95 07/17/18 00:00 07/17/18 00:00 07/17/18 00:00 07/17/18 00:00 07/17/18 00:00 Intake and Output: 07/17/18 07/17/18 06:59 18:59 Intake Total 450 Output Total 200 Balance 250 - Medications Medications: Current Medications Piperacillin Sod/Tazobactam Sod (Zosyn 3.375 Gm Iv Premix) 3.375 gm in 50 mls @ 100 mls/hr IVPB Q6H [facility] Last Admin: 07/17/18 04:00 Dose: 100 mls/hr Potassium Chloride 40 meq/ (Dextrose/Sodium Chloride) 1,020 mls @ 100 mls/hr IV .[id number] [facility] Last Admin: 07/17/18 04:00 Dose: 100 mls/hr Morphine Sulfate (Morphine) 2 mg IVP Q4 PRN PRN Reason: Pain, moderate (4-7) Last Admin: 07/16/18 04:15 Dose: 2 mg Morphine Sulfate (Morphine) 4 mg IVP Q4 PRN PRN Reason: Pain, severe (8-10) Ondansetron HCl (Zofran Inj) 4 mg IVP Q4 PRN PRN Reason: Nausea/Vomiting Pantoprazole Sodium (Protonix Inj) 40 mg IVP DAILY [facility] Last Admin: 07/16/18 10:27 Dose: 40 mg Sodium Phosphate (Fleet Enema) 135 ml SC Q8H [facility] Stop: 07/18/18 02:01 Last Admin: 07/17/18 04:02 Dose: 135 ml - Labs Labs: 07/16/18 00:16 07/16/18 00:16 PT 11.9 SECONDS (9.7-12.2) 07/16/18 00:16 INR 1.1 07/16/18 00:16 Attending/Attestation - Attestation I have personally seen and examined this patient.: Yes I have fully participated in the care of the patient.: Yes I have reviewed all pertinent clinical information, including history, physical exam and plan: Yes Notes (Text): 07/17/18 08:26 I have seen and examined patient with GI fellow. No acute events overnight, he reports minimal RLQ abdominal pain but denies nausea, vomiting, fever/chills. Had bowel movements following enema use, review of vitals from today are normal. HTN Hyperlipidemia BPH CAD Abdominal pain, recurrent SBO - Continue with antibiotic therapy - Can likely remove NGT and advance to clear liquid diet from GI standpoint - Continue with IVF hydration, supportive care - Follow up surgical recommendations - Will consider additional medical management of suspected underlying inflammatory disease as outpatient following resolution of acute symptoms
--- NOTE | 2018-07-17 09:42 | CP.PCM.PN ---
<Shi Reese - Last Filed: 07/17/18 09:48> Subjective - Date & Time of Evaluation Date of Evaluation: 07/17/18 Time of Evaluation: 07:00 - Subjective Subjective: GENERAL SURGERY PROGRESS NOTE FOR DR. ROMERO Patient seen and examined at bedside. He reports passing flatus and BMs after the enema. Denies nausea, vomiting, or abdominal pain. He is ambulating. Objective - Vital Signs/Intake and Output Vital Signs (last 24 hours): Temp Pulse Resp BP Pulse Ox 97.6 F 82 20 135/69 98 07/17/18 08:24 07/17/18 08:24 07/17/18 08:24 07/17/18 08:24 07/17/18 08:24 Intake and Output: 07/17/18 07/17/18 06:59 18:59 Intake Total 450 Output Total 200 Balance 250 - Medications Medications: Current Medications Piperacillin Sod/Tazobactam Sod (Zosyn 3.375 Gm Iv Premix) 3.375 gm in 50 mls @ 100 mls/hr IVPB Q6H [facility] Last Admin: 07/17/18 04:00 Dose: 100 mls/hr Potassium Chloride 40 meq/ (Dextrose/Sodium Chloride) 1,020 mls @ 100 mls/hr IV .[id number] [facility] Last Admin: 07/17/18 04:00 Dose: 100 mls/hr Morphine Sulfate (Morphine) 2 mg IVP Q4 PRN PRN Reason: Pain, moderate (4-7) Last Admin: 07/16/18 04:15 Dose: 2 mg Morphine Sulfate (Morphine) 4 mg IVP Q4 PRN PRN Reason: Pain, severe (8-10) Ondansetron HCl (Zofran Inj) 4 mg IVP Q4 PRN PRN Reason: Nausea/Vomiting Pantoprazole Sodium (Protonix Inj) 40 mg IVP DAILY [facility] Last Admin: 07/16/18 10:27 Dose: 40 mg Sodium Phosphate (Fleet Enema) 135 ml [place] Q8H [facility] Stop: 07/18/18 02:01 Last Admin: 07/17/18 04:02 Dose: 135 ml - Labs Labs: 07/16/18 00:16 07/16/18 00:16 PT 11.9 SECONDS (9.7-12.2) 07/16/18 00:16 INR 1.1 07/16/18 00:16 - Constitutional Appears: Non-toxic, No Acute Distress - Head Exam Head Exam: ATRAUMATIC, NORMAL INSPECTION - Eye Exam Eye Exam: EOMI, Normal appearance - Respiratory Exam Respiratory Exam: NORMAL BREATHING PATTERN. absent: Respiratory Distress - Cardiovascular Exam Cardiovascular Exam: +S1, +S2 - GI/Abdominal Exam GI & Abdominal Exam: Soft. absent: Distended, Firm, Guarding, Rigid, Tenderne ss, Rebound - Neurological Exam Neurological Exam: Alert, Awake, Oriented x3 - Psychiatric Exam Psychiatric exam: Normal Affect, Normal Mood - Skin Skin Exam: Normal Color, Warm Assessment and Plan - Assessment and Plan (Free Text) Assessment: 67 yo M with PMHx of HTN, hyperlipidemia, BPH, CAD, [place] s/p laparoscopic small bowel resection on 02/19/18 who is found to have SBO, improved - Abdominal X-ray reviewed this AM - Having bowel function, remove NG tube - Advance to full liquid diet - Will decrease IV fluids - GI considering additional medical management of suspected underlying IBD as outpatient following resolution of acute symptoms - Discussed plan with Dr. Heather Reese PGY-4 <Kelby Romero B - Last Filed: 07/20/18 20:49> Objective - Vital Signs/Intake and Output Vital Signs (last 24 hours): Temp Pulse Resp BP Pulse Ox 97.8 F 74 20 133/71 97 07/18/18 08:00 07/18/18 08:00 07/18/18 08:00 07/18/18 08:00 07/18/18 08:00 - Labs Labs: 07/16/18 00:16 07/18/18 08:23 PT 11.9 SECONDS (9.7-12.2) 07/16/18 00:16 INR 1.1 07/16/18 00:16 Attending/Attestation - Attestation I have personally seen and examined this patient.: Yes I have fully participated in the care of the patient.: Yes I have reviewed all pertinent clinical information, including history, physical exam and plan: Yes Notes (Text): Pt was seen and examined at bedside Agree with above note and assessment Pt is improving clinically AXR in am CBC and BMP in am Fleet enema OOB to walk Plan d.w pt in detail
--- NOTE | 2018-07-17 09:56 | RAD ---
Date of service: 07/17/2018 HISTORY: ? sbo COMPARISON: CT abdomen and pelvis 07/16/2018 FINDINGS: BOWEL: The extent and distribution the prior small-bowel dilatation findings compatible with small-bowel obstruction have changed. Currently the small-bowel loops are no longer distended in the right abdomen. Those loops in the left abdomen at or just proximal to the chain like sutures here appear smaller in caliber and nearing the upper limits of normal. No thickening of the valvulae conniventes suggested. The NG tube tip is at the gastric fundus a course of the subdiaphragmatic NG tube is coursing retrograde-this side ports are below the GE junction. Consider some retraction of the NG tube to facilitate repositioning of its tip. BONES: Dextroscoliosis and diffuse osteophytosis. Generalized osteopenia Bilateral hip osteoarthrosis. 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 OTHER FINDINGS: Mild-moderate bladder distention. IMPRESSION: Interval improvement the prior small bowel obstructive pattern. No similarly persisting small bowel obstruction now suggested. Left small-bowel loops appear top normal. Retro grade coursing NG tube with tip pointing at fundus-please note the above-consider repositioning. Other findings as above.
[2018-07-17] MEDS ORDERED: Potassium Chloride 40 MEQ in Dextrose 5%/0.9% NS 1,000 ML IV SCH (10:30)
--- NOTE | 2018-07-17 12:31 | CARD ---
APPROVED REPORT Date of service: 07/16/2018 EKG Measurement Heart [id number] <Conclusion> Normal sinus rhythm Normal ECG
[2018-07-17] MEDS: Metoprolol Succinate 50 mg XL Tab PO SCH (12:44)
[2018-07-17 15:08] LABS: BLOOD UREA NITROGEN 14 mg/dL (9-20); CALCIUM 8.8 mg/dl (8.6-10.4); GFR NON-AFRICAN AMERICAN 55
--- NOTE | 2018-07-17 17:46 | CP.PCM.PN ---
Subjective - Date & Time of Evaluation Date of Evaluation: 07/17/18 Time of Evaluation: 09:15 - Subjective Subjective: clinically same Objective - Vital Signs/Intake and Output Vital Signs (last 24 hours): Temp Pulse Resp BP Pulse Ox 97.9 F 72 20 123/76 96 07/17/18 16:00 07/17/18 16:00 07/17/18 16:00 07/17/18 16:00 07/17/18 16:00 Intake and Output: 07/17/18 07/17/18 06:59 18:59 Intake Total 450 Output Total 200 Balance 250 - Medications Medications: Current Medications Clopidogrel Bisulfate (Plavix) 75 mg PO HS [facility] Finasteride (Proscar) 5 mg PO HS [facility]I Piperacillin Sod/Tazobactam Sod (Zosyn 3.375 Gm Iv Premix) 3.375 gm in 50 mls @ 100 mls/hr IVPB Q6H [facility] Last Admin: 07/17/18 10:26 Dose: 100 mls/hr Potassium Chloride 40 meq/ (Dextrose/Sodium Chloride) 1,020 mls @ 50 mls/hr IV .[id number] [facility] Last Admin: 07/17/18 10:29 Dose: Not Given Metoprolol Succinate (Toprol Xl) 50 mg PO DAILY [facility] Last Admin: 07/17/18 12:44 Dose: 50 mg Morphine Sulfate (Morphine) 2 mg IVP Q4 PRN PRN Reason: Pain, moderate (4-7) Last Admin: 07/16/18 04:15 Dose: 2 mg Ondansetron HCl (Zofran Inj) 4 mg IVP Q4 PRN PRN Reason: Nausea/Vomiting Pantoprazole Sodium (Protonix Inj) 40 mg IVP DAILY [facility] Last Admin: 07/17/18 10:28 Dose: 40 mg Rosuvastatin Calcium (Crestor) 5 mg PO HS [facility] Sodium Phosphate (Fleet Enema) 135 ml [place] Q8H [facility] Stop: 07/18/18 02:01 Last Admin: 07/17/18 10:29 Dose: 135 ml - Labs Labs: 07/16/18 00:16 07/17/18 14:20 PT 11.9 SECONDS (9.7-12.2) 07/16/18 00:16 INR 1.1 07/16/18 00:16 - Constitutional Appears: Well - Head Exam Head Exam: ATRAUMATIC, NORMAL INSPECTION, NORMOCEPHALIC - Eye Exam Eye Exam: EOMI, Normal appearance, PERRL Pupil Exam: NORMAL ACCOMODATION, PERRL - ENT Exam ENT Exam: Mucous Membranes Moist, Normal Exam - Neck Exam Neck Exam: Full ROM, Normal Inspection. absent: Lymphadenopathy - Respiratory Exam Respiratory Exam: Decreased Breath Sounds - Cardiovascular Exam Cardiovascular Exam: REGULAR RHYTHM, +S1, +S2 - GI/Abdominal Exam GI & Abdominal Exam: Soft, Diminished Bowel Sounds - Rectal Exam Rectal Exam: Deferred
[2018-07-18] MEDS: Piperacill/Tazo 3.375gm in Dex 3.375 GM/50 ML BAG IVPB SCH ×2 (04:54→10:30)
--- NOTE | 2018-07-18 07:33 | CP.PCM.PN ---
<LalitoimaniMary Annecheryl - Last Filed: 07/18/18 11:22> Subjective - Date & Time of Evaluation Date of Evaluation: 07/18/18 Time of Evaluation: 08:30 - Subjective Subjective: PGY-4 GI Fellow Prog Note Pt lying in bed when seen this AM. States abd pain continues to improve and tolerating a liquid diet without issue. Since his bowels started moving though he states that he has had multiple loose brownish red bowel movements. Denied lightheadedness, shortness of breath. 5 point ROS negative other than stated above Objective - Vital Signs/Intake and Output Vital Signs (last 24 hours): Temp Pulse Resp BP Pulse Ox 98.1 F 66 18 120/72 98 07/17/18 23:54 07/17/18 23:54 07/17/18 23:54 07/17/18 23:54 07/17/18 23:54 Intake and Output: 07/18/18 07/18/18 06:59 18:59 Intake Total 400 Balance 400 - Medications Medications: Current Medications Clopidogrel Bisulfate (Plavix) 75 mg PO HS [facility] Last Admin: 07/17/18 21:54 Dose: 75 mg Finasteride (Proscar) 5 mg PO [facility] Last Admin: 07/17/18 21:54 Dose: 5 mg Piperacillin Sod/Tazobactam Sod (Zosyn 3.375 Gm Iv Premix) 3.375 gm in 50 mls @ 100 mls/hr IVPB Q6H [facility] Last Admin: 07/18/18 04:54 Dose: 100 mls/hr Potassium Chloride 40 meq/ (Dextrose/Sodium Chloride) 1,020 mls @ 50 mls/hr IV .[id number] [facility] Last Admin: 07/17/18 10:29 Dose: Not Given Metoprolol Succinate (Toprol Xl) 50 mg PO DAILY [facility] Last Admin: 07/17/18 12:44 Dose: 50 mg Morphine Sulfate (Morphine) 2 mg IVP Q4 PRN PRN Reason: Pain, moderate (4-7) Last Admin: 07/16/18 04:15 Dose: 2 mg Ondansetron HCl (Zofran Inj) 4 mg IVP Q4 PRN PRN Reason: Nausea/Vomiting Pantoprazole Sodium (Protonix Inj) 40 mg IVP DAILY [facility] Last Admin: 02/07/19 10:28 Dose: 40 mg Rosuvastatin Calcium (Crestor) 5 mg PO HS [facility] Last Admin: 07/17/18 21:54 Dose: 5 mg - Labs Labs: 07/16/18 00:16 07/17/18 14:20 PT 11.9 SECONDS (9.7-12.2) 07/16/18 00:16 INR 1.1 07/16/18 00:16 - Constitutional Appears: Well, No Acute Distress - Head Exam Head Exam: ATRAUMATIC, NORMAL INSPECTION - Eye Exam Eye Exam: EOMI. absent: Scleral icterus - ENT Exam ENT Exam: Mucous Membranes Moist. absent: Mucous Membranes Dry - Respiratory Exam Respiratory Exam: NORMAL BREATHING PATTERN. absent: Accessory Muscle Use, Respiratory Distress - GI/Abdominal Exam GI & Abdominal Exam: Soft, Tenderness (mildly ttp to R of umbilicus), Normal Bowel Sounds. absent: Bruit, Distended, Firm, Guarding, Rigid, Mass, Organomegaly, Pulsatile Mass - Psychiatric Exam Psychiatric exam: Normal Affect, Normal Mood Assessment and Plan - Assessment and Plan (Free Text) Assessment: 67 yo Male with HTN, HLD, BPH, CAD s/p stenting (2017, on clopidogrel), h/o recurrent SBO presening with abd pain, nausea/vomiting. # Recurrent SBO: Signs/symptoms with CT imagin of dialted loops of small bowel with likely transition point in RLQ. Symptoms improved post-NG and supportive care. Unclear etiology for recurrence. Given muscularis propria hyperplasia on resected small bowel, there is some concern about possible underlying Crohn's disease/inflammatory component. But, IBD panel returned negative. Quantiferon, CRP and calprotectin negative on outpatient labs. # CAD: s/p stent, 2017. On clopidogrel. # Diarrhea: Reportedly brownish red. Vitals stable and recently had multiple enemas. Suspect likely related to antibiotic side effects and trauma component. Plan: - NG removed and tolerating liq diet, advance to low residue - Check C diff - Supportive care - Will consider further rx 5-ASA, budesonide, etc. as outpatient Pt seen and examined with Dr. Og; please see attestation for further recs/changes. <Lance Og - Last Filed: 07/18/18 11:48> Objective - Vital Signs/Intake and Output Vital Signs (last 24 hours): Temp Pulse Resp BP Pulse Ox 97.8 F 74 20 133/71 97 07/18/18 08:00 07/18/18 08:00 07/18/18 08:00 07/18/18 08:00 07/18/18 08:00 Intake and Output: 07/18/18 07/18/18 06:59 18:59 Intake Total 400 Balance 400 - Medications Medications: Current Medications Clopidogrel Bisulfate (Plavix) 75 mg PO [facility] Last Admin: 07/17/18 21:54 Dose: 75 mg Finasteride (Proscar) 5 mg PO [facility] Last Admin: 07/17/18 21:54 Dose: 5 mg Piperacillin Sod/Tazobactam Sod (Zosyn 3.375 Gm Iv Premix) 3.375 gm in 50 mls @ 100 mls/hr IVPB Q6H [facility] Last Admin: 07/18/18 10:30 Dose: 100 mls/hr Potassium Chloride 40 meq/ (Dextrose/Sodium Chloride) 1,020 mls @ 50 mls/hr IV .[id number] [facility] Last Admin: 07/17/18 10:29 Dose: Not Given Metoprolol Succinate (Toprol Xl) 50 mg PO DAILY [facility] Last Admin: 07/18/18 10:31 Dose: 50 mg Ondansetron HCl (Zofran Inj) 4 mg IVP Q4 PRN PRN Reason: Nausea/Vomiting Pantoprazole Sodium (Protonix Inj) 40 mg IVP DAILY [facility] Last Admin: 07/18/18 10:31 Dose: 40 mg Rosuvastatin Calcium (Crestor) 5 mg PO [facility] Last Admin: 07/17/18 21:54 Dose: 5 mg - Labs Labs: 07/16/18 00:16 07/18/18 08:23 PT 11.9 SECONDS (9.7-12.2) 07/16/18 00:16 INR 1.1 07/16/18 00:16 Attending/Attestation - Attestation I have personally seen and examined this patient.: Yes I have fully participated in the care of the patient.: Yes I have reviewed all pertinent clinical information, including history, physical exam and plan: Yes Notes (Text): 07/18/18 11:45 I have seen and examined patient with GI fellow. No acute events overnight, he reports more frequent loose stool today but otherwise denies abdominal pain, nausea, vomiting, fever/chills. Tolerating PO liquids without difficulty. HTN Hyperlipidemia CAD s/p stent on plavix Abdominal pain - recurrent SBO - Advance diet slowly as tolerated - Check stool for c-difficile - Continue with IVF hydration, supportive care - Follow up surgical recommendations - No further planned GI interventions, will sign off case. Will plan for additional outpatient follow up and initiation of medical therapy after additional literature review and histopathology analysis. Please reconsult as necessary, thank you.
[2018-07-18 08:31] VITALS: BP 133/71; PULSE 74; RESP 20; TEMP 97.8; O2SAT 97
[2018-07-18 08:48] LABS: BLOOD UREA NITROGEN 12 mg/dL (9-20); CALCIUM 9.1 mg/dl (8.6-10.4); GFR NON-AFRICAN AMERICAN 50
[2018-07-18] MEDS ORDERED: Magnesium Oxide 400 mg Tab UD PO ONE (08:56)
[2018-07-18] MEDS: Metoprolol Succinate 50 mg XL Tab PO SCH (10:31)
--- NOTE | 2018-07-18 12:37 | CP.PCM.DIS ---
Provider - Provider Date of Admission: 07/16/18 02:31 Attending physician: Kelby Romero MD Consults: Dr. 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 Provider: Jin Babin Consulting Physician: Jin Babin Reason for Consult: medical management Time Spent in preparation of Discharge (in minutes): 30 Diagnosis - Discharge Diagnosis (1) SBO (small bowel obstruction) Status: Resolved Hospital Course - Lab Results Lab Results: Most Recent Lab Values WBC 7.5 K/uL (4.8-10.8) 07/16/18 00:16 RBC 4.47 Mil/uL (4.40-5.90) 07/16/18 00:16 Hgb 13.1 g/dL (12.0-18.0) 07/16/18 00:16 Hct 39.7 % (35.0-51.0) 07/16/18 00:16 MCV 88.9 fL (80.0-94.0) 07/16/18 00:16 MCH 29.4 pg (27.0-31.0) 07/16/18 00:16 MCHC 33.1 g/dL (33.0-37.0) 07/16/18 00:16 RDW 14.8 % (11.5-14.5) H 07/16/18 00:16 Plt Count 188 K/uL (130-400) 07/16/18 00:16 MPV 8.8 fL (7.2-11.7) 07/16/18 00:16 Neut % (Auto) 79.9 % (50.0-75.0) H 07/16/18 00:16 Lymph % (Auto) 12.2 % (20.0-40.0) L 07/16/18 00:16 [place] % (Auto) 7.3 % (0.0-10.0) 07/16/18 00:16 Eos % (Auto) 0.2 % (0.0-4.0) 07/16/18 00:16 Baso % (Auto) 0.4 % (0.0-2.0) 07/16/18 00:16 Neut # (Auto) 6.0 K/uL (1.8-7.0) 07/16/18 00:16 Lymph # (Auto) 0.9 K/uL (1.0-4.3) L 07/16/18 00:16 [place] # (Auto) 0.5 K/uL (0.0-0.8) 07/16/18 00:16 Eos # (Auto) 0.0 K/uL (0.0-0.7) 07/16/18 00:16 Baso # (Auto) 0.0 K/uL (0.0-0.2) 07/16/18 00:16 PT 11.9 SECONDS (9.7-12.2) 07/16/18 00:16 INR 1.1 07/16/18 00:16 Sodium 141 mmol/L (132-148) 07/18/18 08:23 Potassium 4.7 mmol/L (3.6-5.2) 07/18/18 08:23 Chloride 107 mmol/L (98-107) 07/18/18 08:23 Carbon Dioxide 26 mmol/L (22-30) 07/18/18 08:23 Anion Gap 12 (10-20) 07/18/18 08:23 BUN 12 mg/dL (9-20) 07/18/18 08:23 Creatinine 1.4 mg/dL (0.8-1.5) 07/18/18 08:23 Est GFR ( Amer) > 60 07/18/18 08:23 Est GFR (Non-Af Amer) 50 07/18/18 08:23 Random Glucose 90 mg/dL (75-110) 07/18/18 08:23 Calcium 9.1 mg/dl (8.6-10.4) 07/18/18 08:23 Phosphorus 3.2 mg/dL (2.5-4.5) 07/18/18 08:23 Magnesium 1.4 mg/dL (1.6-2.3) L 07/18/18 08:23 Total Bilirubin 0.8 mg/dL (0.2-1.3) 07/16/18 00:16 AST 33 U/L (17-59) 07/16/18 00:16 ALT 14 U/L (21-72) L D 07/16/18 00:16 Alkaline Phosphatase 68 U/L (38-126) 07/16/18 00:16 Total Creatine Kinase 44 U/L (55-170) L 07/16/18 08:06 CK-MB (Mass) 2.10 ng/mL (0.0-3.38) 07/16/18 08:06 Troponin I < 0.0120 ng/mL (0.00-0.120) 07/16/18 08:06 Total Protein 8.2 g/dL (6.3-8.3) 07/16/18 00:16 Albumin 4.9 g/dL (3.5-5.0) 07/16/18 00:16 Globulin 3.2 gm/dL (2.2-3.9) 07/16/18 00:16 Albumin/Globulin Ratio 1.5 (1.0-2.1) 07/16/18 00:16 Lipase 103 U/L (23-300) 07/16/18 00:16 Stool Occult Blood Negative (NEGATIVE) 07/18/18 11:48 Hepatitis A IgM Ab Negative (NEGATIVE) 07/16/18 14:06 Hep Bs Antigen Negative (NEGATIVE) 07/16/18 14:06 Hep B Core IgM Ab Negative (NEGATIVE) 07/16/18 14:06 Hepatitis C Antibody Negative (NEGATIVE) 07/16/18 14:06 Blood Type AB POSITIVE 07/16/18 00:27 Antibody Screen Negative 07/16/18 00:27 - Hospital Course Hospital Course: 67 yo M with PMHx of HTN, hyperlipidemia, BPH, CAD, [place] s/p laparoscopic small bowel resection on 02/19/18 who presented to the ED on 07/16/18 with abdominal pain and vomiting. CT Abd/Pelvis showed Small sliding hiatal hernia. Fluid-filled distended stomach. Moderate partial small bowel obstruction. Transition zone at the level of the surgical anastomosis in the right lower quadrant. Fat containing left inguinal hernia without incarceration. He was made NPO with bowel rest. NG tube was placed for gastric decompression. IV fluids and IV Zosyn were given. After patient had return of bowel function, his NG tube was removed on 07/17. He was started on a liquid diet which tolerated. Today, patient is passing gas and having BMs. Tolerating diet and is discharged home to follow up with GI for further workup of possible IBD. Discharge Exam - Head Exam Head Exam: ATRAUMATIC, NORMAL INSPECTION - Eye Exam Eye Exam: EOMI, Normal appearance - Respiratory Exam Respiratory Exam: NORMAL BREATHING PATTERN. absent: Respiratory Distress - Cardiovascular Exam Cardiovascular Exam: +S1, +S2 - GI/Abdominal Exam GI & Abdominal Exam: Soft. absent: Distended, Firm, Guarding, Rebound, Rigid, Tenderness - Neurological Exam Neurological exam: Alert, CN II-XII Intact, Oriented x3 - Psychiatric Exam Psychiatric exam: Normal Affect, Normal Mood - Skin Skin Exam: Dry, Intact Discharge Plan - Follow Up Plan Condition: FAIR Disposition: HOME/ ROUTINE Patient education suggested?: Yes Instructions: Small Bowel Obstruction Additional Instructions: Follow up with Dr. Og (GI) as outpatient in 1 week. Call to make appointment Referrals: Lance Og MD [Staff Provider] - Kelby Romero MD [Staff Provider] -
== END 2018-07-18 16:00 | disposition home or self-care (01) | DRG 390 ==
LOC: C.ER 23:33 → C.9E 07-16 02:31 → C.6T 07-16 04:06 → C.5S 07-16 19:50
PROVIDERS: ADMIT Surgery Surgical Critical Care; ATTEND Surgery Surgical Critical Care
DX: K56.609 Unspecified intestinal obstruction, unspecified as to partial versus complete obstruction (principal); E78.5 Hyperlipidemia, unspecified; I10 Essential (primary) hypertension; I25.10 Atherosclerotic heart disease of native coronary artery without angina pectoris; N40.0 Benign prostatic hyperplasia without lower urinary tract symptoms; Z96.653 Presence of artificial knee joint, bilateral; Z95.5 Presence of coronary angioplasty implant and graft; K44.9 Diaphragmatic hernia without obstruction or gangrene; H26.9 Unspecified cataract